=== PATIENT | female | born 1940 | race Caucasian/White ===

== ENCOUNTER → 2018-06-24 08:20 | Outpatient (CLI) | payer MEDICARE, OTHER, SELFPAY ==
--- NOTE | 2018-06-24 | DI.ECHO.S_ITS ---
[place] [facility]---------+ [facility] +---------+ : : [address] : : : : [id number] : : : : Phone: [phone]+ Echocardiogram Report + + :Name: LASHON HENDERSON Study Date: 06/24/2018 Height: 65 in : :[facility] Exam Location: [place] Weight: 169 lb : : Gender: Female BSA: 1.8 m2 : :: 1940 Age: 78 yrs BP: 148/78 mmHg: :Reason For Study: MURMUR : : Performed By: Triston Urrutia : :Referring: CALVIN NORWOOD : + + Interpretation Summary The ejection fraction is estimated to be 60-65%. There is trace mitral regurgitation. There is mild tricuspid regurgitation. The right ventricular systolic pressure is estimated to be at least 29 mmHg based on an estimated right atrial pressure of 8 mm Hg. Procedure: A two-dimensional transthoracic echocardiogram with color flow and Doppler was performed. The study quality was technically good. There is no prior echocardiogram noted for this patient. The patient was in normal sinus rhythm during the exam. The patient had frequent PACs during the exam. Left Ventricle: The left ventricle is normal in size. There is normal left ventricular wall thickness. The ejection fraction is estimated to be 60-65%. There are no focal wall motion abnormalities. Right Ventricle: The right ventricle is normal in size and function. Atria: The left atrium is mildly dilated. Right atrial size is normal. The interatrial septum is intact with no evidence for an atrial septal defect. Mitral Valve: The mitral valve is normal in structure and function. There is trace mitral regurgitation. Aortic Valve: The aortic valve is normal in structure and function. The aortic valve is trileaflet. The aortic valve opens well. No aortic regurgitation is present. Tricuspid Valve: The tricuspid valve is normal in structure and function. There is mild tricuspid regurgitation. The right ventricular systolic pressure is estimated to be at least 29 mmHg based on an estimated right atrial pressure of 8 mm Hg. Pulmonic Valve: The pulmonic valve is normal in structure and function. There is no pulmonic valvular regurgitation. Great Vessels: The aortic root is normal size. The ascending aorta could not be visualized. The pulmonary artery is normal size. The IVC is dilated (diameter is greater than 2.1 cm) yet it collapses greater than 50% with a sniff. This suggests a right atrial pressure of 8 mm Hg. Pericardium/ Pleura There is no pericardial effusion. There is no pleural effusion. MMode/2D Measurements & Calculations LVIDd: 4.0 cm Ao root diam: 2.9 cm LVIDs: 2.7 cm Aortic Jxn: 2.3 cm FS: 31.3 % EPSS: 0.47 cm IVSd: 0.76 cm LVPWd: 0.70 cm LV mohamud. diameter/BSA (cm/m^2): 2.2 LV sys. diameter/BSA (cm/m^2): 1.5 LA dimension: 3.4 cm RA long axis: 5.3 cm LA A2 area: 19.1 cm2 RA area: 17.1 cm2 LA A4 area: 22.8 cm2 RA vol: 46.8 ml LA length (vol): 5.4 cm RA : 25.4 ml/m2 LA vol: 68.6 ml IVC diam: 2.4 cm LA vol index: 37.3 ml/m2 Doppler Measurements & Calculations Ao V2 max: 125.7 cm/sec LVOT Max Rod: 82.2 cm/sec Ao V2 mean: 95.6 cm/sec LV V1 max P.7 mmHg Ao max P.3 mmHg LV V1 VTI: 18.1 cm Ao mean P.9 mmHg sev ratio: 0.59 Ao V2 VTI: 30.7 cm MV E max rod: 106.8 cm/sec TR max rod: 229.0 cm/sec MV A max rod: 95.3 cm/sec TR max P.0 mmHg MV E/A: 1.1 PA V2 max: 73.3 cm/sec Med Peak E' Rod: 5.8 cm/sec PA V2 mean: 54.6 cm/sec E/E' med: 18.5 PA mean P.3 mmHg Lat Peak E' Rod: 7.0 cm/sec PA pr(Accel): 41.6 mmHg E/E' lat: 15.2 PA Accel Time: 0.08 sec E/e' average: 16.8 MV dec time: 0.20 sec Pulm A Revs Rod: 19.2 cm/sec Reading Physician:04:25 PM
== END ==
PROVIDERS: PCP Family Medicine; Visit Provider Family Medicine
DX: I07.1 Rheumatic tricuspid insufficiency (principal); R01.1 Cardiac murmur, unspecified; R53.83 Other fatigue
CPT/HCPCS: 93306

== ENCOUNTER → 2019-01-20 11:55 | Outpatient (CLI) | payer MEDICARE, OTHER, SELFPAY ==
--- NOTE | 2019-01-20 | DI.US.S_ITS ---
PROCEDURE: US CAROTID DOPPLER BI INDICATIONS: RIGHT NECK BRUIT TECHNIQUE: Color and pulse Doppler interrogation was performed of both carotid systems, with image documentation and velocity measurements. COMPARISON: None. FINDINGS: Stenosis calculations are based on SRU (Society of Radiologists in Ultrasound) criteria. The flow velocities and the arterial waveforms are normal within both carotid arterial systems. Atherosclerotic plaque is seen on both sides. The estimated degree of internal carotid artery stenosis is less than 50%. Antegrade flow is confirmed within both vertebral arteries. Incidental note is made of prominent lymph nodes within the left neck. The largest solitary lymph node measures 7 mm in short axis. IMPRESSION: No hemodynamically significant stenosis is seen. Atherosclerotic plaque is noted bilaterally. Dictated by: Cullen Martinez M.D. on 01/20/2019 at 12:48 Approved by: Cullen Martinez M.D. on 01/20/2019 at 12:48
== END ==
PROVIDERS: PCP Family Medicine; Visit Provider Internal Medicine Cardiovascular Disease
DX: I65.23 Occlusion and stenosis of bilateral carotid arteries (principal); R09.89 Other specified symptoms and signs involving the circulatory and respiratory systems
CPT/HCPCS: 93880

== ENCOUNTER → 2019-05-30 13:28 | Outpatient (CLI) | payer MEDICARE, OTHER, SELFPAY ==
--- NOTE | 2019-05-30 | DI.RAD.S_ITS ---
PROCEDURE: XR CHEST 2V INDICATIONS: PA/LAT CHEST FOR RIB PAIN TECHNIQUE: 2 views of the chest were acquired. COMPARISON: [facility], CT, CT CHEST ABDOMEN PELVIS WITH CONTRAST, 04/08/2019, 19:02. [facility], CR, CHEST 2 VIEW, 06/20/2011, 13:44. [facility], CR, XR CHEST 1 VIEW, 04/08/2019, 18:18. [facility], CR, CHEST 1 VIEW, 06/21/2017, 10:56. FINDINGS: Surgical changes and devices: None. Lungs and pleura: Ill-defined focal nodular opacities projecting in the right midlung probably callus formation from rib fractures seen on the prior CT. No pleural effusions or pneumothorax. Scattered scarring/atelectasis. No focal consolidation Mediastinum: Mediastinal contours are normal. Heart size is normal. Bones and chest wall: No suspicious bony abnormalities. Dextroscoliosis Soft tissues appear unremarkable. IMPRESSION: No acute consolidation. Developing sclerosis/opacity projecting in the region of the right fifth and sixth ribs presumably healing callus formation related to fracture seen on prior CT. Dictated by: Girish Esqueda M.D. on 05/30/2019 at 14:42 Approved by: Girish Esqueda M.D. on 05/30/2019 at 14:47
== END ==
PROVIDERS: Visit Provider Student in an Organized Health Care Education/Training Program
DX: R07.81 Pleurodynia (principal)
CPT/HCPCS: 71046

== ENCOUNTER → 2019-07-21 15:41 | Outpatient (CLI) | payer MEDICARE, OTHER, SELFPAY | PROVIDERS: Visit Provider Student in an Organized Health Care Education/Training Program | DX: N63.10 Unspecified lump in the right breast, unspecified quadrant (principal); Z53.20 Procedure and treatment not carried out because of patient's decision for unspecified reasons ==

== ENCOUNTER → 2019-08-12 13:23 | Outpatient (CLI) | payer MEDICARE, OTHER, SELFPAY ==
--- NOTE | 2019-08-12 | DI.CT.S_ITS ---
PROCEDURE: CT ABDOMEN W CON INDICATIONS: Generalized abdominal pain TECHNIQUE: After the administration of oral and intravenous contrast, 5 mm thick sections acquired from the diaphragms to the iliac crests. 5 mm thick coronal and sagittal reformats were acquired. For radiation dose reduction, the following was used: automated exposure control, adjustment of mA and/or kV according to patient size. COMPARISON: [facility], CT, CT CHEST ABDOMEN PELVIS WITH CONTRAST, 04/08/2019, 19:02. FINDINGS: Image quality: Excellent. Lung bases: Lung bases are clear. Heart size is normal. Solid organs: Liver is enlarged. Visualized liver is within normal limits. Gallbladder is within normal limits. Biliary system is non dilated. Pancreas enhances normally. Spleen is normal in size and enhancement. No adrenal nodules. Kidneys are normal in size, without hydronephrosis. Peritoneum and bowel: Contrast enhanced bowel loops appear normal in caliber. No free fluid or air. Nodes and vessels: No retroperitoneal or mesenteric adenopathy by size criteria. Aorta and inferior vena cava are normal in size. Bones: No suspicious bony lesions. Severe leftward curvature of the lumbar spine. No vertebral body compression fractures. Miscellaneous: No ventral hernias. IMPRESSION: 1. No acute process. 2. Hepatomegaly. Dictated by: Ruthy Amaya M.D. on 08/12/2019 at 18:04 Approved by: Ruthy Amaya M.D. on 08/12/2019 at 18:06
== END ==
PROVIDERS: PCP Student in an Organized Health Care Education/Training Program; Visit Provider Nurse Practitioner Family
DX: R10.84 Generalized abdominal pain (principal); R16.0 Hepatomegaly, not elsewhere classified
CPT/HCPCS: 74160; Q9967

== ENCOUNTER → 2020-02-18 09:02 | Outpatient (CLI) | payer MEDICARE, OTHER, SELFPAY ==
--- NOTE | 2020-02-18 | DI.CT.S_ITS ---
PROCEDURE: CT ABDOMEN PELVIS W CON INDICATIONS: Generalized abdominal pain TECHNIQUE: After the administration of oral and intravenous contrast, 5 mm thick sections acquired from the diaphragms to the symphysis. 5 mm thick coronal and sagittal reformats were performed. For radiation dose reduction, the following was used: automated exposure control, adjustment of mA and/or kV according to patient size. COMPARISON: None. FINDINGS: Image quality: Excellent. ABDOMEN: Lung bases: Lung bases are clear. Heart size is normal. Solid organs: Liver is normal in size and enhancement. Gallbladder appears normal. Biliary system is non-dilated. Pancreas enhances normally. Spleen is normal in size and enhancement. No adrenal nodules. Kidneys are normal in size and enhancement, without hydronephrosis. Peritoneum and bowel: Stomach, small bowel, and colon loops are normal in caliber and wall thickness. No free fluid or air. Nodes and vessels: No retroperitoneal or mesenteric adenopathy. Aorta and inferior vena cava are normal in caliber. Miscellaneous: No ventral hernias. Convex leftward scoliosis is present, centered within the thoracolumbar junction region. PELVIS: Genitourinary: Bladder wall thickness is normal. Miscellaneous: No inguinal hernias or adenopathy. Mild sigmoid diverticulosis, no acute diverticulitis. No urinary tract or adnexal abnormalities found. Bones: No suspicious bony lesions. No vertebral body compression fractures. IMPRESSION: A definite source of lower pelvic pain is not identified. No adnexal or urinary tract abnormality is seen. There is sigmoid diverticulosis, mild in severity, but no CT evidence of acute diverticulitis superimposed. Prominent convex leftward scoliosis centered near the thoracolumbar junction incidentally noted. Dictated by: Arie Temple M.D. on 02/18/2020 at 13:41 Approved by: Arie Temple M.D. on 02/18/2020 at 13:44
[2020-02-18 09:38] LABS: Add Manual Diff / Slide Review NO; Basophils Absolute Auto 100 /uL (0-100); Eosinophils Absolute Auto 300 /uL (0-450); Eosinophils Percent Auto 5.2 % (2-4); Hematocrit 34.3 % (36-46); Hemoglobin 11.7 g/dL (12.0-16.0); Lymphocytes Absolute Auto 800 /uL (1100-4500); Lymphocytes Percent Auto 15.7 % (25-40); Mean Corpuscular HGB Conc 34.2 % (30-36); Mean Corpuscular Hemoglobin 31.2 PG (26-34); Mean Corpuscular Volume 91.4 fL (80-100); Monocytes Absolute Auto 600 /uL (0-900); Monocytes Percent Auto 10.5 % (3-14); Neutrophils Absolute Auto 3600 /uL (1500-7000); Neutrophils Percent Auto 67.6 % (50-75); Platelet Count 202 X10^3/uL (150-400); Red Blood Cell Count 3.75 X10^6/uL (4.0-5.2); Red Cell Distribution Width 13.3 % (11.6-14.8); White Blood Cell Count 5.3 X10^3/uL (4.5-11.0)
[2020-02-18 09:44] LABS: Alanine Aminotransferase 21 IU/L (<35); Albumin Globulin Ratio 1.4 (1.0-2.8); Alkaline Phosphatase 77 U/L (38-126); Aspartate Aminotransferase 29 IU/L (14-36); Blood Urea Nitrogen 20 mg/dL (7-17); Calcium 9.2 mg/dL (8.4-10.2); Carbon Dioxide 33 mmol/L (22-32); Chloride 100 mmol/L (98-107); Estimated Glomerular Filt Rate > 60.0 mL/min (>60); Globulin 2.9 g/dL (1.7-4.1); Glucose 102 mg/dL (80-110); HEMOLYSIS < 15 (0-50); Lipase 93 U/L (23-300); Potassium 4.7 mmol/L (3.4-5.1); Sodium 138 mmol/L (137-145); Total Protein 6.9 g/dL (6.3-8.2)
== END ==
PROVIDERS: PCP Student in an Organized Health Care Education/Training Program; Referring Provider Student in an Organized Health Care Education/Training Program; Visit Provider Student in an Organized Health Care Education/Training Program
DX: R10.84 Generalized abdominal pain (principal); K57.30 Diverticulosis of large intestine without perforation or abscess without bleeding; M41.85 Other forms of scoliosis, thoracolumbar region
CPT/HCPCS: 36415; 74177; 80053; 83690; 85025; Q9967

== ENCOUNTER 2020-02-23 12:58 | Emergency (ER) | payer MEDICARE, OTHER, SELFPAY ==
[2020-02-23 13:06] VITALS: BP 161/67; PULSE 68; RESP 17; TEMP 36.5; O2SAT 97; BMI 25.0
[2020-02-23 13:34] LABS: Add Manual Diff / Slide Review NO; Basophils Absolute Auto 100 /uL (0-100); Basophils Percent Auto 0.9 % (0-2); Eosinophils Absolute Auto 300 /uL (0-450); Eosinophils Percent Auto 3.8 % (2-4); Hematocrit 35.3 % (36-46); Hemoglobin 11.8 g/dL (12.0-16.0); Lymphocytes Absolute Auto 600 /uL (1100-4500); Lymphocytes Percent Auto 9.7 % (25-40); Mean Corpuscular HGB Conc 33.3 % (30-36); Mean Corpuscular Hemoglobin 30.6 PG (26-34); Mean Corpuscular Volume 91.8 fL (80-100); Monocytes Absolute Auto 600 /uL (0-900); Monocytes Percent Auto 9.4 % (3-14); Neutrophils Absolute Auto 5100 /uL (1500-7000); Neutrophils Percent Auto 76.2 % (50-75); Platelet Count 209 X10^3/uL (150-400); Red Blood Cell Count 3.85 X10^6/uL (4.0-5.2); White Blood Cell Count 6.6 X10^3/uL (4.5-11.0)
[2020-02-23 13:41] LABS: Alanine Aminotransferase 23 IU/L (<35); Albumin Globulin Ratio 1.4 (1.0-2.8); Alkaline Phosphatase 81 U/L (38-126); Aspartate Aminotransferase 28 IU/L (14-36); BUN Creatinine Ratio 27.6 (6-22); Bilirubin Total 0.8 mg/dL (0.2-1.3); Blood Urea Nitrogen 21 mg/dL (7-17); Carbon Dioxide 34 mmol/L (22-32); Chloride 100 mmol/L (98-107); Estimated Glomerular Filt Rate > 60.0 mL/min (>60); Globulin 2.9 g/dL (1.7-4.1); Glucose 122 mg/dL (80-110); HEMOLYSIS < 15 (0-50); Magnesium 2.2 mg/dL (1.6-2.3); Potassium 3.9 mmol/L (3.4-5.1); Sodium 137 mmol/L (137-145); Total Protein 6.9 g/dL (6.3-8.2)
--- NOTE | 2020-02-23 13:41 | PC.NURSE ---
pt ambulated to bathroom with stand by assist from this [employer]. When walking back to the pt complained of shortness of breath. When put back on SPo2 monitor pt satted at 78% on RA. EILEEN Garcia at bedside and 2l o2 via nasal cannula was put on pt. Pt is now satting at 97% on 2L.
[2020-02-23 13:50] LABS: NT-proBNP (BNP-Adult 18+) 234 pg/mL (<450)
[2020-02-23 13:52] LABS: Troponin I < 0.012 ng/mL (0.01-0.034)
[2020-02-23 13:55] VITALS: BP 142/63; PULSE 64; RESP 26; O2SAT 100
[2020-02-23 14:00] VITALS: BP 126/60; PULSE 63; RESP 17; O2SAT 98
--- NOTE | 2020-02-23 14:24 | DI.CT.S_ITS ---
PROCEDURE: CT HEAD/BRAIN WO CON INDICATIONS: sudden onset of dizziness TECHNIQUE: Noncontrast 4.5 mm thick angled axial sections acquired from the foramen magnum to the vertex, with coronal and sagittal reformats. For radiation dose reduction, the following was used: automated exposure control, adjustment of mA and/or kV according to patient size. COMPARISON: None. FINDINGS: Image quality: Excellent. CSF spaces: Basal cisterns are patent. No extra-axial fluid collections. The ventricles are symmetric in size and shape. Brain: No intracranial bleeds or masses. There is cerebral volume loss for age, with resultant ventricular and sulcal prominence. There are periventricular and deep white matter chronic small vessel ischemic changes. There is intracranial internal carotid artery atherosclerosis. Skull and face: Calvarium and visualized facial bones appear intact, without suspicious lesions. Sinuses: Visualized sinuses and mastoids are clear. IMPRESSION: No evidence acute stroke, hemorrhage, or mass. Dictated by: Candido Joyce M.D. on 02/23/2020 at 14:45 Approved by: Candido Joyce M.D. on 02/23/2020 at 14:45
[2020-02-23 15:25] VITALS: BP 126/60; PULSE 54; RESP 18; O2SAT 100
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
--- NOTE | 2020-02-23 16:03 | PC.NURSE ---
Pt ambulated to restroom, sats at 88% post ambulation. Pt has home O2. A couple fingers were blue, pt states she has noticed this lately. Giving information on Raynauds per Kyler BINDING STITCHER.
== END 2020-02-23 15:58 | disposition home or self-care (01) ==
PROVIDERS: Emergency Medicine; Emergency Provider Nurse Practitioner Family; PCP Student in an Organized Health Care Education/Training Program
DX: R42 Dizziness and giddiness (principal); J44.9 Chronic obstructive pulmonary disease, unspecified; I48.91 Unspecified atrial fibrillation; Z79.82 Long term (current) use of aspirin
CPT/HCPCS: 70450; 80053; 81003; 83735; 83880; 84484; 85025; 93005; 99284

== ENCOUNTER → 2020-09-24 14:56 | Outpatient (ROUT) | payer MEDICARE, OTHER, SELFPAY ==
[2020-09-24 15:25] LABS: Troponin I < 0.012 ng/mL (0.01-0.034)
== END ==
PROVIDERS: PCP Student in an Organized Health Care Education/Training Program; Visit Provider Student in an Organized Health Care Education/Training Program
DX: R42 Dizziness and giddiness (principal)
CPT/HCPCS: 84484

== ENCOUNTER → 2020-10-11 07:48 | Outpatient (CLI) | payer MEDICARE, OTHER, SELFPAY ==
--- NOTE | 2020-10-11 | DI.ECHO.S_ITS ---
[facility] +---------+ : : [address] : : : : [id number] : : : : Phone: [phone] Echocardiogram Report + + :Name: LASHON HENDERSON Study Date: 10/11/2020 Height: 65 in : :[facility] ReadingLocation: Weight: 160 lb : : Gender: Female BSA: 1.8 m2 : :: 1940 Age: 80 yrs BP: 143/64 mmHg: :Reason For Study: HYPOTENSION : :Ordering Physician: DAVE, : :BECCA Performed By: Alesha Rincon : :Referring: BECCA GREER : + + Interpretation Summary The ejection fraction is estimated to be 65-70%. There is mild mitral regurgitation. There is mild to moderate tricuspid regurgitation. The right ventricular systolic pressure is estimated to be at least 55 mmHg based on an estimated right atrial pressure of 8 mm Hg. The IVC is dilated (diameter is greater than 2.1 cm) yet it collapses greater than 50% with a sniff. This suggests a right atrial pressure of 8 mm Hg. Procedure: A two-dimensional transthoracic echocardiogram with color flow and Doppler was performed. The study quality was technically adequate. Comparison is made with the echocardiogram of 06/24/2018. The patient was in sinus rhythm with heart rates between 56-70 bpm during the exam. Left Ventricle: The left ventricle is normal in size and wall thickness. The ejection fraction is estimated to be 65-70%. Left ventricular wall motion is normal. Diastolic parameters suggest a relaxation abnormality of the left ventricle, consistent with probable normal filling pressures. Right Ventricle: The right ventricle is normal in size and function. Atria: The left atrium is mildly dilated. Right atrial size is normal. There is no Doppler evidence for an interatrial shunt. Mitral Valve: The mitral valve leaflets appear borderline thickened, but open well. There is moderate mitral annular calcification. There is mild mitral regurgitation. Aortic Valve: The aortic valve is trileaflet. The aortic valve opens well. There is no aortic valve stenosis. No aortic regurgitation is present. Tricuspid Valve: The tricuspid valve is normal in structure and function. There is mild to moderate tricuspid regurgitation. The right ventricular systolic pressure is estimated to be at least 55 mmHg based on an estimated right atrial pressure of 8 mm Hg. Pulmonic Valve: The pulmonic valve leaflets are thin and pliable; valve motion is normal. There is no pulmonic valvular regurgitation. Great Vessels: The aortic root is normal size. The dimensions of the ascending aorta are normal. The IVC is dilated (diameter is greater than 2.1 cm) yet it collapses greater than 50% with a sniff. This suggests a right atrial pressure of 8 mm Hg. Pericardium/ Pleura There is no pericardial effusion. There is no pleural effusion. MMode/2D Measurements & Calculations LVIDd: 3.9 cm LVOT diam: 1.9 cm LVIDs: 2.3 cm Ao root diam: 2.7 cm FS: 41.8 % asc Aorta Diam: 3.0 cm EPSS: 0.18 cm Ao Arch Diam (Prox Trans): 1.9 cm IVSd: 0.67 cm LVPWd: 0.76 cm LV mohamud. diameter/BSA (cm/m^2): 2.2 LV sys. diameter/BSA (cm/m^2): 1.3 LA A2 area: 21.2 cm2 RA long axis: 4.9 cm LA A4 area: 19.4 cm2 RA area: 15.1 cm2 LA length (vol): 5.1 cm RA vol: 39.9 ml LA vol: 68.2 ml RA : 22.2 ml/m2 LA vol index: 37.9 ml/m2 IVC diam: 2.1 cm RVD1 (basal): 3.0 cm TAPSE: 3.0 cm Doppler Measurements & Calculations Ao V2 max: 147.8 cm/sec LVOT Max Rod: 138.5 cm/sec Ao V2 mean: 93.2 cm/sec LV V1 max P.7 mmHg Ao max P.7 mmHg LV V1 VTI: 29.9 cm Ao mean P.1 mmHg MEL(I,D): 2.4 cm2 Ao V2 VTI: 35.1 cm MEL(V,D): 2.7 cm2 sev ratio: 0.85 MEL indexed to BSA (cm^2/m^2): 1.3 MV E max rod: 120.2 cm/sec TR max rod: 341.4 cm/sec MV A max rod: 105.5 cm/sec TR max P.6 mmHg MV E/A: 1.1 PA V2 max: 94.9 cm/sec Med Peak E' Rod: 7.1 cm/sec PA V2 mean: 59.0 cm/sec E/E' med: 16.9 PA mean P.7 mmHg Lat Peak E' Rod: 8.8 cm/sec PA pr(Accel): -30.6 mmHg E/E' lat: 13.7 E/e' average: 15.3 MV dec time: 0.26 sec SV(LVOT): 85.0 ml Reading Physician:03:04 PM
== END ==
PROVIDERS: PCP Student in an Organized Health Care Education/Training Program; Referring Provider Student in an Organized Health Care Education/Training Program; Visit Provider Student in an Organized Health Care Education/Training Program
DX: I08.1 Rheumatic disorders of both mitral and tricuspid valves (principal); I95.9 Hypotension, unspecified
CPT/HCPCS: 93306

== ENCOUNTER → 2020-12-17 12:31 | Outpatient (ROUT) | payer MEDICARE, OTHER, SELFPAY ==
[2020-12-17 12:41] LABS: BUN Creatinine Ratio 34.3 (6-22); Blood Urea Nitrogen 24 mg/dL (7-17); Calcium 9.3 mg/dL (8.4-10.2); Carbon Dioxide 37 mmol/L (22-32); Chloride 96 mmol/L (98-107); Estimated Glomerular Filt Rate > 60.0 mL/min (>60); Glucose 101 mg/dL (80-110); HEMOLYSIS 21 (0-50); Potassium 4.2 mmol/L (3.4-5.1); Sodium 137 mmol/L (137-145)
== END ==
PROVIDERS: PCP Student in an Organized Health Care Education/Training Program; Visit Provider Student in an Organized Health Care Education/Training Program
DX: I48.0 Paroxysmal atrial fibrillation (principal)
CPT/HCPCS: 80048

== ENCOUNTER → 2021-02-25 09:43 | Outpatient (CLI) | payer MEDICARE, OTHER, SELFPAY ==
[2021-02-25 10:41] LABS: Add Manual Diff / Slide Review NO; Basophils Absolute Auto 100 /uL (0-100); Basophils Percent Auto 1.1 % (0-2); Eosinophils Absolute Auto 100 /uL (0-450); Eosinophils Percent Auto 1.8 % (2-4); Hemoglobin 10.9 g/dL (12.0-16.0); Lymphocytes Absolute Auto 700 /uL (1100-4500); Lymphocytes Percent Auto 9.4 % (25-40); Mean Corpuscular HGB Conc 33.1 % (30-36); Mean Corpuscular Hemoglobin 30.7 PG (26-34); Mean Corpuscular Volume 92.6 fL (80-100); Monocytes Absolute Auto 700 /uL (0-900); Monocytes Percent Auto 9.4 % (3-14); Neutrophils Absolute Auto 6100 /uL (1500-7000); Neutrophils Percent Auto 78.3 % (50-75); Platelet Count 270 X10^3/uL (150-400); Red Blood Cell Count 3.56 X10^6/uL (4.0-5.2); Red Cell Distribution Width 15.8 % (11.6-14.8); White Blood Cell Count 7.8 X10^3/uL (4.5-11.0)
== END ==
PROVIDERS: PCP Student in an Organized Health Care Education/Training Program; Referring Provider Student in an Organized Health Care Education/Training Program; Visit Provider Student in an Organized Health Care Education/Training Program
DX: D62 Acute posthemorrhagic anemia (principal)
CPT/HCPCS: 36415; 85025

== ENCOUNTER → 2021-10-11 12:28 | Outpatient (CLI) | payer MEDICARE, OTHER, SELFPAY ==
--- NOTE | 2021-10-11 | DI.RAD.S_ITS ---
PROCEDURE: XR CHEST 2V INDICATIONS: COPD AND SOB TECHNIQUE: 2 views of the chest were acquired. COMPARISON: [facility], CR, XR ABDOMEN 1 VIEW, 05/26/2021, 13:37. [facility], CT, CT ABDOMEN PELVIS W CON, 02/18/2020, 10:33. [facility], CR, XR CHEST 1 VIEW, 03/12/2021, 8:59. [facility], CR, XR CHEST 2V, 05/30/2019, 13:51. FINDINGS: Surgical changes and devices: None. Lungs and pleura: Lungs are hyperinflated consistent with COPD. Lucencies in lower lobes on both sides are most likely due to emphysematous bullae. There is diffuse interstitial prominence. No pleural effusions or pneumothorax. Mediastinum: Mediastinal contours are normal. Heart size is normal. Bones and chest wall: No suspicious bony abnormalities. Soft tissues appear unremarkable. Osteopenia. IMPRESSION: Moderate emphysema. Dictated by: Usha Powell M.D. on 10/11/2021 at 14:18 Approved by: Usha Powell M.D. on 10/11/2021 at 14:20
[2021-10-11 12:52] LABS: D Dimer 228 ng/mL (<230)
== END ==
PROVIDERS: PCP Student in an Organized Health Care Education/Training Program; Referring Provider Student in an Organized Health Care Education/Training Program; Visit Provider Student in an Organized Health Care Education/Training Program
DX: J43.9 Emphysema, unspecified (principal); R06.02 Shortness of breath
CPT/HCPCS: 71046; 85379